=== PATIENT | female | born 2000 | race Caucasian/White ===

== ENCOUNTER 2021-01-20 13:37 | Emergency (ER) | payer OTHER ==
[~2021-01-20] VITALS: Ht 162.6 cm; Wt 63.6 kg
[2021-01-20 13:52] VITALS: TEMP 98.3
[2021-01-20 14:50] VITALS: BP 112/68; PULSE 71
== END 2021-01-20 14:55 | disposition home or self-care (01) ==
LOC: COL.ER 13:37
DX: S93.401A Sprain of unspecified ligament of right ankle, initial encounter (principal); X50.1XXA Overexertion from prolonged static or awkward postures, initial encounter; Y93.67 Activity, basketball